=== PATIENT | female | born 1955 | race Caucasian/White ===

== ENCOUNTER → 2024-06-02 15:22 | Outpatient (REF) | payer MEDICARE, OTHER, SELFPAY | LOC: HWWDC 15:22 | PROVIDERS: ATTENDING PHYSICIAN Family Medicine | DX: Z12.31 Encounter for screening mammogram for malignant neoplasm of breast (principal) | CPT/HCPCS: 77063; 77067 ==

== ENCOUNTER → 2024-07-29 09:27 | Outpatient (REF) | payer MEDICARE, OTHER, SELFPAY | LOC: WDC 09:27 | PROVIDERS: ATTENDING PHYSICIAN Family Medicine | DX: R92.8 Other abnormal and inconclusive findings on diagnostic imaging of breast (principal) | CPT/HCPCS: 76642 ==

== ENCOUNTER → 2024-09-20 14:51 | Outpatient (REF) | payer MEDICARE, OTHER, SELFPAY | LOC: HWRCS 14:51 | PROVIDERS: ATTENDING PHYSICIAN Internal Medicine Cardiovascular Disease; FAMILY PHYSICIAN Family Medicine | DX: I35.9 Nonrheumatic aortic valve disorder, unspecified (principal) | CPT/HCPCS: 93306 ==

== ENCOUNTER 2025-02-22 14:33 | Emergency (ER) | payer MEDICARE, OTHER, SELFPAY ==
[2025-02-22 14:35] VITALS: BP 139/80
--- NOTE | 2025-02-22 16:16 | ED.MUSCINJ ---
HPI-Injury
General
Chief Complaint: Musculo-Skeletal Complaint
Source: patient and significant other
Exam Limitations: none
Time Seen by Provider: 02/22/25 15:38
Nursing documentation reviewed up to this point in time: agreed with
History of Present Illness-Injury
Is this injury a work related problem?: No
Is pt an associate of [facility]/[place]?: No
Initial Injury comments:
Patient is a 69-year-old female with past medical history of Parkinson's disease, hypertension, hyperlipidemia, who presents to the emergency department accompanied by her from home for evaluation following a fall that occurred approximately
3 hours ago. Patient reports that she was not using her walker or her wheelchair like she is supposed to. She reports that she was leaning to get something and subsequently fell. Patient reports that she landed on her left knee. Patient denies
any other injuries were sustained. Patient denies head injury or loss of consciousness. Patient takes a daily 81 mg aspirin but is otherwise not anticoagulated. Patient denies any numbness, weakness, tingling of her extremities. She endorses
pain and swelling to the left knee. Patient reports taking 600 mg of ibuprofen with improvement in her pain.
Past History
Past History
ED Past Medical History: Cancer (melanoma), HTN and Other (Parkinson's)
ED Past Surgical History: Orthopedic
Social History
Tobacco: Non-smoker
Alcohol: Occasional
Drug: None
Personal:
Living: with family
Review of Systems
Review of Systems
Allergies reviewed?: Yes
All Other Systems: Not applicable
Constitutional: Reports no symptoms
EENT: Reports no symptoms
Respiratory: Reports no symptoms
Cardiac: Reports no symptoms
ABD/GI: Reports no symptoms
: Reports no symptoms
Musculoskeletal: Reports other (left knee pain and swelling)
Skin: Reports no symptoms
Neurological: Reports no symptoms
Endocrine: Reports no symptoms
Hematologic/Lymphatic: Reports no symptoms
Psychiatric: Reports no symptoms
Phy Exam
General Physical Exam
General Presentation: well appearing and no apparent distress
General Skin: warm and dry
General Habitus: normal
General Mental: alert
General Hydration: appears well hydrated
ENT Exam
ENT Exam: EOMI, pharynx normal, neck supple and normocephalic
Eye Exam
Eye Exam: PERRL, cornea clear and conjunctiva normal
Cardiovascular Exam
Cardiovascular Exam: regular rate/rhythm, no edema, no murmur and normal peripheral pulses
Pulmonary Exam
Pulmonary Exam: lungs clear, no respiratory distress, no rales, no crackles, no rhonchi, no stridor, no wheezing and no cough
Gastrointestinal Exam
Gastrointestinal Exam: normal bowel sounds, non tender, soft, no organomegaly, no pulsatile mass and non distended
Neurological Exam
Neurological Exam: alert, oriented x3, no motor deficits and speech normal
Musculoskeletal Exam
Musculoskeletal Exam: full ROM and other (no neck or back ttp, no ecchymosis, abrasions (+)swelling and ecchymosis and ttp to the anterior aspect of the left knee, no ttp to the remainder of the LLE, 2+ DP pulse, SILT)
Skin Exam
Skin Exam: normal color, warm/dry, no rash and no petechia
Psychiatric Exam
Psychiatric Exam: normal mood/affect
Injury Course
Orders/Labs/Results
Orders:
Orders
02/22/25 14:37
Knee, Left 4 or More Views [CR Knee - Left 4 Or More View*] Urgent
Comment:
Reason For Exam: pain injury
02/22/25 16:13
Acetaminophen [Tylenol] 650 mg PO NOW STA
02/22/25 16:14
Knee Immobilizer Left-Treatmen ONCE
*Pulse Oximetry
SaO2: 95
Oxygen Mode of Delivery: Room air
Patient hypoxic: no
*Critical Care Note
Total Time (30-74mins, 75-104mins- exclusive of procedures): Not Applicable
Update Note
Update Note:
Patient is a 69-year-old female who presents to the emergency department for evaluation of left knee pain and swelling following a mechanical fall at home earlier today. Patient denies any other injuries were sustained, she specifically denies head
injury or loss of consciousness. On arrival, patient is slightly hypertensive, afebrile. On exam, patient is well-appearing, she is in no acute distress, she is neurovascularly intact. Radiographs were performed while the patient was in the
waiting room and demonstrate largely nondisplaced patellar fracture. Will provide the patient with additional analgesia in the form of Tylenol. Will place a knee immobilizer. Patient already has a walker and a wheelchair at home. She and her
feel that the patient will be able to get around at home okay. They report that they live on a split-level house and only have 2 or 3 steps that they need to go up and down daily. Patient will continue to take ibuprofen and Tylenol as
needed for her pain. She will continue supportive care measures including ice and elevation. She will follow-up closely with orthopedics. Patient and her were educated on return precautions, they expressed understanding of the plan and
agreed.
ED Attending Note
-
Portions of this chart may have been created with voice recognition software.� Occasional wrong word or��sound alike� substitutions may have occurred due to the inherent limitations of voice recognition software.
Discharge Plan
Departure
Patient Disposition: Home (Routine Discharge)
Date of Disposition: 02/22/25
Time of Disposition: 16:23
Patient with high blood pressure during this ER visit?: Yes
Condition: Good
Covid-19: Not Applicable
Discharge Problem:
Closed fracture of left patella
Instructions: Knee Immobilizer (DC), Patella Fracture ED
Prescriptions:
No Action
lisinopril 20 MG tablet
20 mg PO DAILY
carbidopa-levodopa 1 EACH tablet
1 ea PO .LUNCH TIME
carbidopa-levodopa 1 EACH tablet
2 ea PO BID
L.acidoph,paracasei,B.animalis 1 EACH capsule
1 ea PO DAILY
istradefylline [Nourianz] 20 MG tablet
20 mg PO DAILY
oxycodone-acetaminophen [Endocet] 5-325 mg tablet
1 tab PO TID PRN (Reason: pain) Qty: 7 0RF
Referrals:
Jordon Adrian MD [Active, Orthopedics] - Follow up in 5-7 days
NONE,* [Family Provider, Internal Medicine]
Activity Restrictions/Additional Instructions:
You were seen emergency department for evaluation of left knee pain and swelling following a fall. While you are in the emergency department you had x-rays performed which showed a nondisplaced fracture of the left patella or kneecap. This is
usually treated with a knee immobilizer which you were provided with today. Please leave this on. Please try to rest and elevate your leg. You may use ice to the knee for 20 minutes at a time 4-5 times a day. You may take ibuprofen 600 mg every
6 hours for pain and inflammation. You may also take 650mg of Tylenol every 4-6 hours as needed for additional pain relief. Please follow up closely with orthopedics for definitive management. Please return to the emergency department if you
develop severe pain, swelling, color change of the leg, foot, toes, if you feel you are unable to get around safely at home, or for any other worsening or concerning symptoms.
Interventions
Interventions:
*Risk Screen - Suicide Last Done: 02/22/25 14:35
*General Assessment Last Done: 02/22/25 16:36
*Neglect/Abuse Screening Last Done: 02/22/25 14:35
*ED- Fall Risk Assessment Last Done: 02/22/25 16:36
*ED COVID-19 Vaccine History Last Done: 02/22/25 16:36
*Nursing Disposition Last Done: 02/22/25 16:36
ED-Musculoskeletal Assessment Last Done: 02/22/25 15:53
Discharge Date and Time
Discharge Date/Time: 02/22/25 16:37
Print Language: [id number]
[2025-02-22] MEDS: TYLENOL 650 MG PO (16:18)
== END 2025-02-22 16:37 | disposition home or self-care (01) ==
LOC: EMR 14:33
PROVIDERS: EMERGENCY PHYSICIAN Emergency Medicine
DX: S82.002A Unspecified fracture of left patella, initial encounter for closed fracture (principal); W19.XXXA Unspecified fall, initial encounter; Y92.009 Unspecified place in unspecified non-institutional (private) residence as the place of occurrence of the external cause; I10 Essential (primary) hypertension; G20.A1 Parkinson's disease without dyskinesia, without mention of fluctuations; E78.00 Pure hypercholesterolemia, unspecified; Z79.82 Long term (current) use of aspirin; Z85.820 Personal history of malignant melanoma of skin
CPT/HCPCS: 99283; 29505; 73564